=== PATIENT | male | born 1940 | race Caucasian/White ===

== ENCOUNTER 2016-07-03 12:17 | Emergency (ER) | payer OTHER ==
--- NOTE | ~2016-07-03 | OP ---
Record Of [facility] [address] [place] [address] NAME: GILLIAN JOSÉ SR : 36 STATUS : DEP PAT#: [id number] AGE: 75 ADM/REG DATE : 07/03/16 MR#: [id number] REPORT SERV DATE: 07/03/16 DICTATED BY: SKYLER MOE DATE: 07/03/16 REPORT STATUS : Draft TRANSCRIBED BY: MODL DATE: 07/03/16 DATE OF PROCEDURE: 07/03/2016 PROCEDURE: Endotracheal intubation. INDICATION: Respiratory failure with large subdural hematoma, need for airway protection. PROCEDURE IN DETAIL: The patient was oxygenated with 100% FiO2 with bag valve mask. The patient was easily bagged. The patient was given 100 mg of succinylcholine as well as 20 of etomidate for RSI. Using a MAC 4 laryngoscope, the patient's airway was easily assessed. An 8.0 ET was easily placed passed the vocal cords. Bilateral breath sounds as well as color change capnography was used to confirm tube placement. O2 saturation remained stable during the entire time. PROCEDURE COMPLICATIONS: None. ELLIE Skyler Moe DO / [id number] CC: Ivania Garrison NP
--- NOTE | ~2016-07-03 | EHP ---
ER History and Physical [place] [id number] [facility] [place] [address] NAME: DEAN JOSÉ : 36 STATUS : [facility] ER PAT#: [id number] AGE: 75 ADM/REG DATE : 07/03/16 MR#: [id number] REPORT SERV DATE: 07/03/16 DICTATED BY: SKYLER NOGUERA DATE: 07/03/16 REPORT STATUS : Draft TRANSCRIBED BY: MODAngeline DATE: 07/03/16 CHIEF COMPLAINT: Fall. HISTORY OF PRESENT ILLNESS: The patient is a 75-year-old white male who was at the [facility] today when he tripped and fell, had head injury as well as facial injury. He initially was seen by our mid-level provider here and evaluated at that time, neurologically was intact. The nurse evaluated the patient, he is neurologically intact. Then about 10 minutes later, the nurse returned to the room. The patient complained of inability to move his left leg. Because of this, the provider was alerted, who subsequently alerted me. Immediately, I saw the patient, and the patient had a notable flaccid left lower extremity and nearly flaccid left upper extremity. In discussion with the patient, he was alert and oriented; however, he did somewhat dazed and somewhat sluggish to respond. It is difficult to discern whether this was secondary to hard of hearing, but the patient was alert and oriented and was complaining of mild headache. Because of this, I called a stroke alert secondary to possibly new acute embolic CVA or thrombotic CVA versus a bleed. The patient was immediately transferred to the CT scanner, which revealed a large bilateral subdural hematoma with diffuse cerebral compression. During my initial evaluation, the patient did state, he was on Xarelto for atrial fib. Once he was transferred to the CT scan, the bleed was evaluated. I was called by the nursing staff to see Dean as there did appear to be a bleed. During this time, he began to have decline in respiratory status. I responded the CAT scan suite to evaluate the patient where he was breathing spontaneously, but somewhat lethargic and obtunded at this point. This all changed over a matter of 5 to 10 minutes from his alert and oriented status to nearly obtundation. The patient was breathing spontaneously and was easily bagged, so the patient was transferred back to the emergency room to large trauma room, where rapid sequence intubation was done for airway protection. See details of the procedure note for this procedure details. Arrangements were made and discussed through the transfer center and a large subdural hematoma. Alerted Pharmacy immediately as soon as I found out that the patient was bleeding. We may need PCC once the patient's INR came back at 1.7. The PCC infusion was initiated as well as mannitol infusion for his cerebral compression. The patient is to be transferred to [place] for neurosurgical evaluation. PHYSICAL EXAMINATION: GENERAL: Initially, the patient was alert and oriented with a left-sided hemiparesis and abrasions on his face. LUNGS: Bilateral breath sounds that are equal. ABDOMEN: Soft, nontender. MUSCULOSKELETAL: No musculoskeletal deformities and rapidly declined to an obtunded state with sonorous respirations. DATA: As above. CT scan showed diffuse cerebral compression with bilateral subdural hematomas, right greater than left. IMPRESSION: 1. Large subdural hematoma. 2. Mechanical fall. 3. Coagulopathy. ER History and Physical [address] [address] NAME: DEAN JOSÉ : 36 STATUS : [facility] PAT#: [id number] AGE: 75 ADM/REG DATE : 07/03/16 MR#: [id number] REPORT SERV DATE: 07/03/16 DICTATED BY: SKYLER NOGUERA DATE: 07/03/16 REPORT STATUS : Draft TRANSCRIBED BY: AMANDA DATE: 07/03/16 4. Respiratory failure. PLAN: Transferred to [place] for neurosurgical evaluation and further stabilization. Greater than 40 minutes of critical care time and stabilization of this patient aside of any procedures. ARIEL/AMANDA Skyler Noguera DO / [id number] CC: Ivania Garrison NP
[~2016-07-03 12:17] MED LIST: ALLEGRA180 PO; AMLODIPINE10 M1 OR; ASA5GR PO; ASAB PO; ASAEC PO; AVAP150 PO; AVAPRO300 MG PO; CAT3 PO; CIMETIDINE400 MG PO; CLOPIDOGREL75 MG PO; COREGCR10 PO; COREGCR20 PO; CRESTOR10 PO; CRESTOR5 MG PO; FISH OIL300 MG PO; FLONASE NAS; IRBESARTAN300 MG PO; KLOR-CON M2020 MEQ PO; L40 PO; MULTIPLE VIT PO; NITROQUICK0.4 MG SL; NORV10 PO; PLAVIX PO; RANITIDINE300 MG PO; REMICADE IV; SPIRIVA INH; VERAMYST27.5 MCG NAS; ZOCOR80 MG PO; [UNRECOGNIZED DRUG - OTHER] OR
[2016-07-03 13:39] LABS: BASOPHILS 0.5 %; BASOPHILS ABSOLUTE 0.05 10/3/uL (0.0-0.16); EOSINOPHILS 1.9 %; EOSINOPHILS ABSOLUTE 0.19 10/3/uL (0.0-0.53); ER CBC TAT 0 Hrs 05 Mins; HEMATOCRIT 41.7 % (40.0-51.0); HEMOGLOBIN 14.1 g/dL (13.6-17.8); IMMATURE GRANULOCYTES 0.3 %; IMMATURE GRANULOCYTES ABSOLUTE 0.03 10/3/uL (0.0-0.11); LYMPHOCYTES 20.2 %; LYMPHOCYTES ABSOLUTE 1.97 10/3/uL (0.67-4.30); MANUAL DIFF NO %; MEAN CORPUS HGB CONC 33.8 g/dL (32.0-36.0); MEAN CORPUSCULAR HEMOGLOB 31.9 pg (26.0-34.0); MEAN CORPUSCULAR VOLUME 94.3 fL (80-100); MEAN PLATELET VOLUME 9.3 fL (9.2-13.0); MONOCYTES 9.6 %; MONOCYTES ABSOLUTE 0.94 10/3/uL (0.21-1.20); NEUTROPHILS 67.5 %; NEUTROPHILS ABSOLUTE 6.57 10/3/uL (2.02-8.40); PLATELET COUNT 141 10/3/uL (150-400); RBC DISTRIBUTION WIDTH 13.4 % (12.0-16.0); RED CELL COUNT 4.42 10/6/uL (4.7-6.1); WHITE BLOOD CELLS 9.8 10/3/uL (4.5-10.5)
[2016-07-03 13:47] LABS: INTERNATIONAL NORMAL RATI 1.7 UNITS (-)
[2016-07-03 14:00] LABS: ALBUMIN 3.7 G/DL (3.5-5.0); ALKALINE PHOSPHATASE 78 U/L (45-117); CALCIUM, SERUM 9.2 MG/DL (8.5-10.4); CHLORIDE, SERUM 108 MMOL/L (96-112); CO2 (CARBON DIOXIDE) 23 MMOL/L (24-34); CREATININE 0.96 MG/DL (0.70-1.30); GFR AFRICAN AMERICAN 88 ML/MIN (>=60); GFR NON AFRICAN AMERICAN 76 ML/MIN (>=60); GLOBULIN 3.7 G/DL (2.5-4.1); POTASSIUM, SERUM 3.8 MMOL/L (3.5-5.3); SGOT(AST) 16 U/L (5-40); SGPT(ALT) 17 U/L (5-65); SODIUM, SERUM 144 MMOL/L (135-148); TOTAL BILIRUBIN 0.9 MG/DL (0-1.2); TOTAL PROTEIN 7.4 G/DL (6.0-8.5); TROPONIN I <0.02 NG/ML (<0.05)
[2016-07-03 14:01] LABS: BUN (BLOOD UREA NITROGEN) 17 MG/DL (6-23); GLUCOSE, SERUM 153 MG/DL (60-99)
[2016-07-03] MEDS ORDERED: COREG PO (14:05)
[2016-07-03] MEDS ORDERED: AMLODIPINE PO (14:05)
[2016-07-03] MEDS ORDERED: ASPIRIN PO (14:05)
[2016-07-03] MEDS ORDERED: GABAPENTIN PO (14:06)
[2016-07-03] MEDS ORDERED: TYLENOL PO (14:06)
[2016-07-03] MEDS ORDERED: RANITIDINE PO (14:07)
[2016-07-03] MEDS ORDERED: ELIQUIS PO (14:07)
[2016-07-03] MEDS ORDERED: LASIX PO (14:08)
[2016-07-03] MEDS ORDERED: MULTIVITAMIN PO (14:08)
[2016-07-03] MEDS ORDERED: PLAVIX PO (14:08)
[2016-07-03] MEDS ORDERED: POTASSIUM PO (14:09)
[2016-07-03] MEDS ORDERED: FISH OIL PO (14:09)
[2016-07-03] MEDS ORDERED: CRESTOR PO (14:09)
[2016-07-06 18:10] LABS: CREATININE 0.8 MG/DL (0.70-1.30)
== END 2016-07-03 16:06 | disposition short-term general hospital (02) ==
LOC: ER 12:17
PROVIDERS: Hospitalist
PROC: 0BH17EZ Insertion of Endotracheal Airway into Trachea, Via Natural or Artificial Opening (ICD-10-PCS; principal; 2016-07-03)
DX: S06.5X0A Traumatic subdural hemorrhage without loss of consciousness, initial encounter (principal); S00.31XA Abrasion of nose, initial encounter; D68.9 Coagulation defect, unspecified; J96.90 Respiratory failure, unspecified, unspecified whether with hypoxia or hypercapnia; G81.94 Hemiplegia, unspecified affecting left nondominant side; I10 Essential (primary) hypertension; Z98.61 Coronary angioplasty status; Z95.0 Presence of cardiac pacemaker; W01.0XXA Fall on same level from slipping, tripping and stumbling without subsequent striking against object, initial encounter; Z79.899 Other long term (current) drug therapy
CPT/HCPCS: 36415; 70450; 71010; 73030-RT; 80053; 82962; 84484; 85025; 85610; 85730; 86850; 86900; 86901; 90471; 90714; 93005; 94002; 96374; 96375; 99285; A9270-GY; C9132; J0330; J2150